=== PATIENT | female | born 1965 | race Caucasian/White ===

== ENCOUNTER 2017-06-03 15:01 | Emergency (ER) | payer OTHER ==
[2017-06-03 15:25] LABS: BASOPHILS % (AUTO) 0.3 %; EOSINOPHILS % (AUTO) 0.1 %; HGB - HEMOGLOBIN 13.6 g/dL (12.0-16.0); LYMPHOCYTES # (AUTO) 0.8 10^3/uL (1.5-3.5); LYMPHOCYTES % (AUTO) 4.9 %; MEAN CORPUSCULAR HEMOGLOBIN 28.5 pg (27.0-31.0); MEAN CORPUSCULAR HGB CONC 33.3 g/dL (32.0-36.0); MEAN CORPUSCULAR VOLUME 85.7 fL (81.0-99.0); MEAN PLATELET VOLUME 8.9 fL (7.9-10.8); MONOCYTES # (AUTO) 1.1 10^3/uL (0.0-1.0); MONOCYTES % (AUTO) 6.9 %; NEUTROPHILS # (AUTO) 14.5 10^3/uL (1.5-6.6); NEUTROPHILS % (AUTO) 87.8 %; PLT - PLATELET COUNT 294 10^3/uL (130-450); RED BLOOD COUNT 4.76 10^6/uL (4.20-5.40); RED CELL DISTRIBUTION WIDTH 13.5 % (12.0-15.0); WHITE BLOOD COUNT 16.5 x10^3/uL (4.8-10.8)
[2017-06-03 15:42] LABS: ALBUMIN 4.4 g/dL (3.2-5.5); ALBUMIN/GLOBULIN RATIO 1.3 (1.0-2.2); BILIRUBIN,TOTAL 1.4 mg/dL (0.2-1.0); CALCIUM 9.6 mg/dL (8.5-10.3); CREATININE 0.7 mg/dL (0.4-1.0); TOTAL PROTEIN 7.9 g/dL (6.7-8.2)
[2017-06-03 16:48] LABS: BILIRUBIN,URINE NEGATIVE (NEGATIVE); GLUCOSE, URINE (UA) NEGATIVE (NEGATIVE); KETONES,URINE (UA) NEGATIVE (NEGATIVE); LEUKOCYTE ESTERASE, URINE TRACE (NEGATIVE); NITRITE,URINE NEGATIVE (NEGATIVE); OCCULT BLOOD,URINE NEGATIVE (NEGATIVE); PH,URINE 5.5 PH (5.0-7.5); PROTEIN,URINE NEGATIVE (NEGATIVE); UROBILINOGEN,URINE 0.2 (NORMAL) E.U./dL (NORMAL)
[2017-06-03 16:49] LABS: CLARITY,URINE CLEAR (CLEAR)
[2017-06-03 16:59] LABS: AMORPHOUS SEDIMENT,UR Moderate /LPF; BACTERIA,URINE None Seen /HPF (None Seen); RBC,URINE None Seen /HPF (0-5); SQUAMOUS EPITHELIAL CELL,UR FEW Squamous (<= Few)
--- NOTE | 2017-06-03 17:25 | ED Physician Documentation ---
PD HPI NVD - Stated complaint Stated Complaint: ABD PX/VOMITING/HEADACHE - Chief complaint Chief Complaint: Abd Pain - History obtained from History obtained from: Patient - History of Present Illness Timing - onset: Last night Timing - duration: Hours Timing - details: Abrupt onset, Still present Associated symptoms: Abdominal pain Contributing factors: No: Sick contact, Bad food, Travel, Recent antibiotics Improved by: No: Eating, Vomiting Worsened by: Eating Similar symptoms before: Has not had sx before Recently seen: Not recently seen Review of Systems Constitutional: denies: Fever, Chills Nose: denies: Rhinorrhea / runny nose, Congestion Throat: denies: Sore throat Cardiac: denies: Chest pain / pressure, Palpitations Respiratory: denies: Cough GI: reports: Abdominal Pain, Nausea, Vomiting. denies: Diarrhea : denies: Dysuria, Frequency Skin: denies: Rash, Lesions PD PAST MEDICAL HISTORY - Past Medical History Past Medical History: Yes GI: None Psych: Depression - Past Surgical History Past Surgical History: No - Present Medications Home Medications: Ambulatory Orders Medication Instructions Recorded Confirmed Gerd Med 02/01/14 02/01/14 Ibuprofen [Motrin] 400 mg PO Q6H PRN #30 tablet 02/01/14 Methylphenidate HCl [Concerta] 02/01/14 02/01/14 Oxycodone HCl/Acetaminophen 1 - 2 each PO Q6H PRN #15 tablet 02/01/14 [Percocet 5-325 mg Tablet] Venlafaxine [Effexor] 02/01/14 02/01/14 HYDROcod/ACETAM 5/325 [[place] 5/325] 1 tab PO Q6H PRN #15 tablet 06/03/17 Lidocaine Viscous 2% [Xylocaine 5 ml PO Q4H PRN #1 bottle 06/03/17 Viscous 2%] Ondansetron Odt [Zofran] 4 mg TL Q6H PRN #15 tablet 06/03/17 - Allergies Allergies/Adverse Reactions: Allergies Allergy/AdvReac Type Severity Reaction Status Date / Time No Known Drug Allergies Allergy Verified 02/01/14 12:28 - Social History Does the pt smoke?: No Smoking Status: Never smoker Does the pt drink ETOH?: No Does the pt have substance abuse?: No - Immunizations Immunizations are current?: Yes PD ED PE NORMAL - Vitals Vital signs reviewed: Yes - General General: Alert and oriented X 3, Well developed/nourished, Other (appears in discomfort upper abd. ) - HEENT HEENT: PERRL (nonicteric), Ears normal, Pharynx benign - Neck Neck: Supple, no meningeal sign, No adenopathy - Cardiac Cardiac: RRR, No murmur - Respiratory Respiratory: Clear bilaterally - Abdomen Abdomen: Soft, Non distended, No organomegaly, Other (tender in upper abd without guarding nor rebound tenderness. ) - Female Female : Deferred - Rectal Rectal: Deferred - Back Back: No CVA TTP - Derm Derm: Normal color, Warm and dry - Extremities Extremities: No deformity, No tenderness to palpate, No edema Results - Vitals Vitals: Oxygen O2 Source Room air - Labs Labs: Microbiology 06/03/17 16:38 Urine Culture - Final Urine,Clean Catch 10-50,000 COLONIES/ML Polymicrobial growth including potential pathogens. This is suggestive of skin or other contamination. Laboratory Tests 06/03/17 06/03/17 06/03/17 15:20 15:20 16:38 WBC 16.5 H RBC 4.76 Hgb 13.6 Hct 40.8 MCV 85.7 MCH 28.5 MCHC 33.3 RDW 13.5 Plt Count 294 MPV 8.9 Neut # 14.5 H Lymph # 0.8 L [place] # 1.1 H Eos # 0.0 Baso # 0.0 Absolute Nucleated RBC 0.00 Nucleated RBC % 0.0 Sodium 135 Potassium 3.8 Chloride 103 Carbon Dioxide 25 Anion Gap 7.0 BUN 12 Creatinine 0.7 Estimated GFR (MDRD) 89 Glucose 135 H Calcium 9.6 Total Bilirubin 1.4 H AST 395 H ALT 219 H Alkaline Phosphatase 153 H Total Protein 7.9 Albumin 4.4 Globulin 3.5 Albumin/Globulin Ratio 1.3 Lipase 20 L Urine Color YELLOW Urine Clarity CLEAR Urine pH 5.5 Ur Specific Leslie 1.020 Urine Protein NEGATIVE Urine Glucose (UA) NEGATIVE Urine Ketones NEGATIVE Urine Occult Blood NEGATIVE Urine Nitrite NEGATIVE Urine Bilirubin NEGATIVE Urine Urobilinogen 0.2 (NORMAL) Ur Leukocyte Esterase TRACE H Urine RBC None Seen Urine WBC 0-3 Ur Squamous Epith Cells FEW Squamous Amorphous Sediment Moderate Urine Bacteria None Seen Ur Microscopic Review INDICATED Urine Culture Comments INDICATED - Rads (name of study) abd U/S Radiology: Prelim report reviewed (stones without signs of cholecystitis. CBD minimal dilated without stone seen in duct. ) PD MEDICAL DECISION MAKING - ED course Complexity details: reviewed results, re-evaluated patient (feeling improved regarding pain. LFTs elevated mildly and U/S showing stones and questionably mildly dilated CBD. Consider she might have had a small stone pass through the duct. To return if not improved as could still be effect on duct. ), considered differential, d/w patient Departure - Departure Disposition: 01 Home, Self Care Clinical Impression: Elevated liver enzymes Nausea & vomiting Qualifiers: Vomiting type: unspecified Vomiting Intractability: intractable Qualified Code( s): R11.2 - Nausea with vomiting, unspecified Abdominal pain Qualifiers: Abdominal location: upper abdomen, unspecified Qualified Code(s): R10.10 - Upper abdominal pain, unspecified Condition: Stable Record reviewed to determine appropriate education?: Yes Instructions: ED Abdominal Pain Unkn Cause, ED Abdominal Pain Gallstone Poss Follow-Up: Marija Pascal ARNP [Primary Care Provider] - Prescriptions: HYDROcod/ACETAM 5/325 [[place] 5/325] 1 tab PO Q6H PRN #15 tablet PRN Reason: Pain Lidocaine Viscous 2% [Xylocaine Viscous 2%] 5 ml PO Q4H PRN #1 bottle PRN Reason: Pain Ondansetron Odt [Zofran] 4 mg TL Q6H PRN #15 tablet PRN Reason: Nausea / Vomiting Comments: Drink lots of fluids. [place] food for a day or 2. He has elements of your symptoms of sound like possible stomach virus and irritated stomach. However there is some gallstones present on your ultrasound and some elevated liver enzymes so you may have had a spasming or inflammation of the gallbladder. The ultrasound does not show acute inflammation of it and so it may not actually be the cause per se. Follow-up with your primary care regarding further evaluation of this. Recheck if not better over the next day or so. Use Zofran if needed for nausea. Continue usual medications at home. Add hydrocodone if needed for pain. He can use lidocaine with an antacid if needed for stomach pains. Again recheck if not improved in the next day or 2. Discharge Date/Time: 06/03/17 20:01
[2017-06-03] MEDS ORDERED: SODIUM CHLORIDE 0.9% 1,000 ML IV ONE (17:37)
[2017-06-03] MEDS ORDERED: ONDANSETRON 4 MG/2 ML VIAL IVP STA (17:37)
[2017-06-03] MEDS ORDERED: KETOROLAC 60 MG/2 ML VIAL IVP STA (17:37)
[2017-06-03] MEDS ORDERED: LIDOCAINE VISCOUS 2% 15 ML UDC MM STA (17:38)
[2017-06-03] MEDS ORDERED: MAG HYDROX/AL HYDROX/SIMETH 30 ML UDC PO STA (17:38)
[2017-06-03] MEDS: HYDROmorphone 1 MG/ML SYRINGE IVP STA ×2 (17:52→17:53)
--- NOTE | 2017-06-03 18:57 | Ultrasound Report ---
EXAM: ABDOMEN ULTRASOUND LIMITED, RUQ EXAM DATE: 06/03/2017 06:35 PM. CLINICAL HISTORY: Upper abd pain and vomiting since last night. COMPARISON: 12/14/2011 ultrasound. TECHNIQUE: Real-time scanning was performed with static images obtained. FINDINGS: Liver: Heterogeneous, hyperechoic echotexture. No focal liver lesions. 17 cm. Main portal vein flow: Hepatopetal. Gallbladder: There are 2 small stones within the gallbladder. No gallbladder wall thickening or peric holecystic fluid collections. Biliary System: CBD measures 7 mm. No intrahepatic or extrahepatic ductal dilatation. Other: None. IMPRESSION: 1. Cholelithiasis without evidence of acute cholecystitis. 2. Borderline dilated common bile duct with no obvious choledocholithiasis. 3. Fatty liver. [facility] Referring Provider Line: [phone] SITE ID: [id number]
[2017-06-03 19:58] VITALS: BP 119/62
== END 2017-06-03 20:01 | disposition home or self-care (01) ==
LOC: ED 15:01
DX: R74.8 Abnormal levels of other serum enzymes (principal); R11.2 Nausea with vomiting, unspecified
CPT/HCPCS: 36415; 76705; 80053; 81001; 83690; 85025; 87086; 96361; 96374; 96375; 99283; 99284; A9270; J1170; 81003

== ENCOUNTER 2021-06-11 16:17 | Emergency (ER) | payer OTHER ==
--- NOTE | 2021-06-11 16:33 | ED Physician Documentation ---
History of Present Illness - Stated complaint Stated Complaint: TIRED,HIGH BP - Chief complaint Chief Complaint: Cardiac - Additonal information Additional information: 55-year-old female comes to the emergency department for evaluation of elevated blood pressure. [place] and was told that her blood pressure was too high and that she had an abnormal EKG and needed to come to the ER. Patient denies chest pain, shortness of air. No headache nausea vomiting. No leg swelling. She tells this provider that had her doctor not told her to come to the ER she would not be here Patient denies any history of hypertension or diabetes. No tobacco use. Rare social alcohol use Patient reports that her father in his mid 60s due to myocardial infarction. Patient entered menopause about 2 years ago. Patient has never been seen by a conference translator or had a stress test. She denies ever having chest pain, shortness of breath or exertional chest pain EKG from the provider's office shows a sinus rhythm with a rate of 84. There are some Q waves in the anterior leads but poor R wave progression. No findings to suggest STEMI Review of Systems Constitutional: denies: Fever, Chills Eyes: reports: Reviewed and negative Nose: reports: Reviewed and negative Throat: reports: Reviewed and negative Cardiac: reports: Reviewed and negative Respiratory: reports: Reviewed and negative GI: reports: Reviewed and negative : reports: Reviewed and negative Skin: reports: Reviewed and negative Musculoskeletal: reports: Reviewed and negative PD PAST MEDICAL HISTORY - Past Medical History GI: None Psych: Depression - Past Surgical History Past Surgical History: No - Present Medications Home Medications: Ambulatory Orders Medication Instructions Recorded Confirmed Gerd Med 02/01/14 02/01/14 Ibuprofen [Motrin] 400 mg PO Q6H PRN #30 tablet 02/01/14 Methylphenidate HCl [Concerta] 02/01/14 02/01/14 Oxycodone HCl/Acetaminophen 1 - 2 each PO Q6H PRN #15 tablet 02/01/14 [Percocet 5-325 mg Tablet] Venlafaxine [Effexor] 02/01/14 02/01/14 HYDROcod/ACETAM 5/325 [[place] 5/325] 1 tab PO Q6H PRN #15 tablet 06/03/17 Lidocaine Viscous 2% [Xylocaine 5 ml PO Q4H PRN #1 bottle 03/13/18 Viscous 2%] Ondansetron Odt [Zofran] 4 mg TL Q6H PRN #15 tablet 06/03/17 - Allergies Allergies/Adverse Reactions: Allergies Allergy/AdvReac Type Severity Reaction Status Date / Time No Known Drug Allergies Allergy Verified 02/01/14 12:28 - Social History Does the pt smoke?: No Smoking Status: Never smoker Does the pt drink ETOH?: No Does the pt have substance abuse?: No - Immunizations Immunizations are current?: Yes PD ED PE NORMAL - General General: Alert and oriented X 3, No acute distress, Well developed/nourished - HEENT HEENT: PERRL, Moist mucous membranes - Neck Neck: Supple, no meningeal sign, Thyroid normal - Cardiac Cardiac: RRR, No murmur, No gallop - Respiratory Respiratory: No respiratory distress, Clear bilaterally - Abdomen Abdomen: Normal bowel sounds, Soft, Non tender - Back Back: No CVA TTP, No spinal TTP - Derm Derm: Normal color, Warm and dry - Extremities Extremities: No deformity - Neuro Neuro: Alert and oriented X 3 Eye Opening: Spontaneous Motor: Obeys Commands Verbal: Oriented GCS Score: 15 - Psych Psych: Normal mood Results - Vitals Vitals: Vital Signs - 24 hr 06/11/21 06/11/21 06/11/21 16:30 16:39 17:28 Temperature 36.9 C Heart Rate 81 81 80 Respiratory 18 20 16 Rate Blood Pressure 170/100 H 156/96 H 144/92 H O2 Saturation 98 98 100 Oxygen O2 Source Room air - EKG (time done) 1633 Rate: Rate (enter#) (75) Rhythm: NSR [place]: Normal Intervals: Normal OK. No: Prolonged QT QRS: Normal Ischemia: Non specific changes Compare to prior EKG: Old EKG unavailable Computer interpretation: Agree with computer - Labs Labs: Laboratory Tests 06/11/21 06/11/21 06/11/21 16:44 16:44 16:44 WBC 9.7 RBC 4.47 Hgb 13.9 Hct 40.1 MCV 89.7 MCH 31.1 H MCHC 34.7 RDW 12.5 Plt Count 239 MPV 10.6 Neut # (Auto) 5.6 Lymph # (Auto) 2.9 [place] # (Auto) 0.7 Eos # (Auto) 0.1 Baso # (Auto) 0.1 Absolute Nucleated RBC 0.00 Nucleated RBC % 0.0 Sodium 134 L Potassium 3.7 Chloride 102 Carbon Dioxide 22 Anion Gap 10.0 BUN 15 Creatinine 0.7 Estimated GFR (MDRD) 88 L Glucose 146 H Calcium 9.4 Total Bilirubin 0.4 AST 41 ALT 65 H Alkaline Phosphatase 91 Troponin I High Sens 4.5 Total Protein 7.3 Albumin 4.2 Globulin 3.1 Albumin/Globulin Ratio 1.4 Lipase 30 TSH 06/11/21 16:44 WBC RBC Hgb Hct MCV MCH MCHC RDW Plt Count MPV Neut # (Auto) Lymph # (Auto) [place] # (Auto) Eos # (Auto) Baso # (Auto) Absolute Nucleated RBC Nucleated RBC % Sodium Potassium Chloride Carbon Dioxide Anion Gap BUN Creatinine Estimated GFR (MDRD) Glucose Calcium Total Bilirubin AST ALT Alkaline Phosphatase Troponin I High Sens Total Protein Albumin Globulin Albumin/Globulin Ratio Lipase TSH 1.75 PD MEDICAL DECISION MAKING - ED course Complexity details: reviewed results, re-evaluated patient, considered differential ED course: 55-year-old female was sent to the emergency department for evaluation of elevated blood pressure in her doctor's office. She has no previous history of hypertension. She was therefore a routine screening exam/physical. She denies any chest pain, shortness of air, headache or abdominal pain. No nausea or vomiting. Here in the emergency department she was initially modestly hypertensive but again without symptoms. After time her blood pressure was noted to be decreased to 144/92. Screening labs are unremarkable. She is got no significant anemia findings of renal disease. High-sensitivity troponin is negative. Chest x-ray is without acute focal findings. Her EKG is nonischemic though there is some T wave flattening anteriorly. Given her age I did recommend close follow-up with her primary care doctor. With the understanding of [place] guidelines will defer initiation of treatment for hypertension today here in the emergency department. Do make the recommendation that the patient should be scheduled for outpatient stress test or echocardiogram. Emergent return precautions otherwise discussed. Departure - Departure Disposition: 01 Home, Self Care Clinical Impression: Elevated blood pressure reading Condition: Stable Record reviewed to determine appropriate education?: Yes Instructions: Hypertension Control Follow-Up: ANDREIA BLACK MD [Primary Care Provider] - Comments: Darcy you were referred to the emergency department today for evaluation of elevated blood pressure readings in your doctor's office. While hypertension can be a concerning finding, it typically does not require emergent management. You do not have any signs of hypertensive emergency or urgency while here in the ED. Today your chest x-ray and screening labs are all essentially normal. The last blood pressure recorded for you here in the emergency department is 144/92. I do recommend that you pop by an outpatient blood pressure monitor and begin taking your blood pressures once in the morning and once in the evening. I recommend that you keep a journal of these pressures. I would like you to follow-up closely with your primary care doctor to determine if you would benefit from the initiation of blood pressure medications. You may also benefit from referral to a conference translator for a stress test or echocardiogram.
[2021-06-11 16:49] LABS: BASOPHILS # (AUTO) 0.1 10^3/uL (0.0-0.1); BASOPHILS % (AUTO) 0.8 %; EOSINOPHILS # (AUTO) 0.1 10^3/uL (0.0-0.7); EOSINOPHILS % (AUTO) 1.4 %; HCT - HEMATOCRIT 40.1 % (37.0-47.0); HGB - HEMOGLOBIN 13.9 g/dL (12.0-16.0); LYMPHOCYTES # (AUTO) 2.9 10^3/uL (1.5-3.5); LYMPHOCYTES % (AUTO) 29.7 %; MEAN CORPUSCULAR HEMOGLOBIN 31.1 pg (27.0-31.0); MEAN CORPUSCULAR HGB CONC 34.7 g/dL (32.0-36.0); MEAN CORPUSCULAR VOLUME 89.7 fL (81.0-99.0); MEAN PLATELET VOLUME 10.6 fL (7.9-10.8); MONOCYTES # (AUTO) 0.7 10^3/uL (0.0-1.0); MONOCYTES % (AUTO) 6.8 %; NEUTROPHILS # (AUTO) 5.6 10^3/uL (1.5-6.6); NEUTROPHILS % (AUTO) 57.6 %; PLT - PLATELET COUNT 239 10^3/uL (130-450); RED BLOOD COUNT 4.47 10^6/uL (4.20-5.40); RED CELL DISTRIBUTION WIDTH 12.5 % (12.0-15.0); WHITE BLOOD COUNT 9.7 x10^3/uL (4.8-10.8)
--- NOTE | 2021-06-11 17:01 | XRAY Report ---
PROCEDURE: Chest 1 View X-Ray INDICATIONS: HTN TECHNIQUE: One view of the chest was acquired. COMPARISON: None FINDINGS: Surgical changes and devices: None. Lungs and pleura: No pleural effusions or pneumothorax. Lungs are clear. Mediastinum: Mediastinal contours appear normal. Heart size is normal. Bones and chest wall: No suspicious bony lesions. Overlying soft tissues appear unremarkable. IMPRESSION: No acute process. Reviewed by: Cha Madsen MD on 06/11/2021 5:00 PM PDT Approved by: Cha Madsen MD on 06/11/2021 5:00 PM PDT Station ID: [id number]
[2021-06-11 17:04] LABS: ALBUMIN 4.2 g/dL (3.2-5.5); ALBUMIN/GLOBULIN RATIO 1.4 (1.0-2.2); BILIRUBIN,TOTAL 0.4 mg/dL (0.2-1.0); CALCIUM 9.4 mg/dL (8.5-10.3); CREATININE 0.7 mg/dL (0.4-1.0); POTASSIUM 3.7 mmol/L (3.5-5.0); TOTAL PROTEIN 7.3 g/dL (6.7-8.2)
[2021-06-11 17:28] VITALS: BP 144/92
== END 2021-06-11 17:39 | disposition home or self-care (01) ==
LOC: ED 16:17
DX: R03.0 Elevated blood-pressure reading, without diagnosis of hypertension (principal)
CPT/HCPCS: 36415; 80053; 83690; 84443; 84484; 85025; 93005; 99283; 99284

== ENCOUNTER 2022-02-20 09:22 | Outpatient (CLI) | payer OTHER ==
--- NOTE | 2022-02-21 09:47 | MRI Report ---
PROCEDURE: SHOULDER WO - RT INDICATIONS: SHOULDER PAIN TECHNIQUE: Noncontrast oblique coronal T2 fast spin echo with fat saturation, oblique sagittal T1 spin echo and T2 fast spin echo with fat saturation, axial T1 spin echo and T2 fast spin echo with fat saturation t hrough the shoulder. COMPARISON: None. FINDINGS: Image quality: There are motion artifacts. Rotator cuff: There is partial-thickness tear of the distal supraspinatus tendon involving the articu lar and bursal surfaces, as well as the footprint. There is mild supraspinous muscle atrophy. Mild in fraspinatus and subscapularis tendinosis without discrete tendon tear. Bones and bursae: No bone marrow contusions or fractures. Moderate acromioclavicular and glenohumera l joint degeneration. The acromion demonstrates conventional anatomy, without an os acromiale. There is subcoracoid bursal fluid consistent with bursitis. Capsule and soft tissues: There is degenerative labral fraying involving the anterior superior labru m. In the absence of intra-articular contrast, the glenohumeral ligaments appear intact. The long he ad of the biceps tendon demonstrates normal location and morphology. The rotator interval appears no rmal, without fibrosis. The coracohumeral ligament is normal in thickness. IMPRESSION: 1. Partial-thickness tear of the supraspinous tendon. There is mild supraspinous muscle atrophy. 2. Mild infraspinous and subscapularis tendinosis. 3. Subcoracoid bursitis. 4. Moderate acromioclavicular and glenohumeral joint degeneration. 5. Degenerative anterior superior labral fraying. Reviewed by: Aubree Hayes MD on 02/21/2022 9:46 AM PST Approved by: Aubree Hayes MD on 02/21/2022 9:46 AM PST Station ID: [id number]
== END 2022-02-20 09:23 | disposition home or self-care (01) ==
LOC: DI 09:22
PROVIDERS: ATTEND Physician Assistant
DX: M75.111 Incomplete rotator cuff tear or rupture of right shoulder, not specified as traumatic (principal); M62.511 Muscle wasting and atrophy, not elsewhere classified, right shoulder; M75.51 Bursitis of right shoulder; M19.011 Primary osteoarthritis, right shoulder; M75.81 Other shoulder lesions, right shoulder

== ENCOUNTER 2023-06-30 09:39 | Emergency (ER) | payer OTHER ==
--- NOTE | 2023-06-30 10:35 | XRAY Report ---
PROCEDURE: Chest 1V INDICATIONS: cough/congestion TECHNIQUE: One view of the chest was acquired. COMPARISON: Chest x-ray 06/11/2021 FINDINGS: Surgical changes and devices: None. Lungs and pleura: No pleural effusions or pneumothorax. Lungs are clear. Mediastinum: Mediastinal contours appear normal. Heart size is normal. Bones and chest wall: No suspicious bony lesions. Overlying soft tissues appear unremarkable. IMPRESSION: No acute cardiopulmonary process. Reviewed by: Perri Traylor MD on 06/30/2023 10:34 AM PDT Approved by: Perri Traylor MD on 06/30/2023 10:34 AM PDT Station ID: [id number]
[2023-06-30 11:04] LABS: B. PARAPERTUSSIS- RESP PCR PAN NOT DETECTED; B. PERTUSSIS- RESP PCR PANEL NOT DETECTED; C. PNEUMONIAE- RESP PCR PANEL NOT DETECTED; CORONAVIRUS 229E-RESP PCR NOT DETECTED; CORONAVIRUS HKU1-RESP PCR NOT DETECTED; CORONAVIRUS NL63-RESP PCR NOT DETECTED; CORONAVIRUS OC43-RESP PCR NOT DETECTED; HUMAN METAPNEUMOVIRUS DETECTED; INFLUENZA A- RESP PCR PANEL NOT DETECTED; INFLUENZA B - RESP PCR PANEL NOT DETECTED; M. PNEUMONIAE- RESP PCR PANEL NOT DETECTED; PARAINFLUENZA VIRUS 1 NOT DETECTED; PARAINFLUENZA VIRUS 2 NOT DETECTED; PARAINFLUENZA VIRUS 3 NOT DETECTED; PARAINFLUENZA VIRUS 4 NOT DETECTED; RHINOVIRUS/ENTEROVIRUS NOT DETECTED; RSV- RESP PCR PANEL NOT DETECTED; SARS-CoV-2 -RESP PCR PANEL NOT DETECTED
[2023-06-30] MEDS: IPRATROPIUM/ALBUTEROL 3 ML NEB INH STA (11:34)
--- NOTE | 2023-06-30 12:09 | ED Physician Documentation ---
PD HPI URI - Stated complaint Stated Complaint: WEAK,COUGH,RUNNY NOSE - Chief complaint Chief Complaint: Resp - History obtained from History obtained from: Patient - Additional information Additional information: Patient is a 57-year-old female presenting for evaluation of cough and congestion for the past 2 days. Reports also having body aches. Reports having COVID 3 weeks ago but did recover from that until she started feeling ill again 2 days ago.Cough is not productive. No reported fevers. No vomiting or diarrhea. who is with her and also had COVID a few weeks ago was not currently ill with similar symptoms. 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 - Present Medications Home Medications: Ambulatory Orders Medication Instructions Recorded Confirmed Gerd Med 02/01/14 02/01/14 Ibuprofen [Motrin] 400 mg PO Q6H PRN #30 tablet 02/01/14 Methylphenidate HCl [Concerta] 02/01/14 02/01/14 Oxycodone HCl/Acetaminophen 1 - 2 each PO Q6H PRN #15 tablet 02/01/14 [Percocet 5-325 mg Tablet] Venlafaxine [Effexor] 02/01/14 02/01/14 HYDROcod/ACETAM 5/325 [[place] 5/325] 1 tab PO Q6H PRN #15 tablet 06/03/17 Lidocaine Viscous 2% [Xylocaine 5 ml PO Q4H PRN #1 bottle 06/03/17 Viscous 2%] Ondansetron Odt [Zofran] 4 mg TL Q6H PRN #15 tablet 06/03/17 Albuterol Sulf [Ventolin Hfa 1 - 2 puffs INH Q4HR PRN #1 each 06/30/23 Inhaler] Benzonatate [Tessalon] 100 mg PO TID PRN #21 cap 06/30/23 predniSONE [Deltasone] 60 mg PO DAILY 5 Days #15 tablet 06/30/23 - Allergies Allergies/Adverse Reactions: Allergies Allergy/AdvReac Type Severity Reaction Status Date / Time No Known Drug Allergies Allergy Verified 06/30/23 09:55 - Social History Does the pt smoke?: No Smoking Status: Never smoker Does the pt drink ETOH?: No Does the pt have substance abuse?: No - Immunizations Immunizations are current?: Yes PD ED PE NORMAL - General General: Alert and oriented X 3, No acute distress, Well developed/nourished - HEENT HEENT: Atraumatic, Moist mucous membranes, Pharynx benign - Neck Neck: Supple, no meningeal sign - Cardiac Cardiac: RRR, Strong equal pulses - Respiratory Respiratory: No respiratory distress, Other (End expiratory wheezing, frequent coughing with deep inspiration) - Abdomen Abdomen: Soft, Non tender - Derm Derm: Warm and dry - Extremities Extremities: No calf tenderness / cord - Neuro Neuro: Normal speech Results - Vitals Vitals: Vital Signs - 24 hr 06/30/23 06/30/23 06/30/23 09:52 09:55 11:39 Temperature 36.8 C Heart Rate 80 83 78 Respiratory 20 18 20 Rate Blood Pressure 129/90 H 137/89 H O2 Saturation 96 96 06/30/23 12:20 Temperature Heart Rate 77 Respiratory 17 Rate Blood Pressure 125/79 O2 Saturation 93 Oxygen O2 Source Room air - Labs Labs: Laboratory Tests 06/30/23 10:00 Nasal Adenovirus (PCR) NOT DETECTED Nasal B. parapertussis DNA (PCR) NOT DETECTED Nasal Coronavir 229E PCR NOT DETECTED Nasal Coronavir HKU1 PCR NOT DETECTED Nasal Coronavir NL63 PCR NOT DETECTED Nasal Coronavir OC43 PCR NOT DETECTED Nasal Enterovir/Rhinovir PCR NOT DETECTED Nasal Influenza B PCR NOT DETECTED Nasal Influenza A PCR NOT DETECTED Nasal Parainfluen 1 PCR NOT DETECTED Nasal Parainfluen 2 PCR NOT DETECTED Nasal Parainfluen 3 PCR NOT DETECTED Nasal Parainfluen 4 PCR NOT DETECTED Nasal RSV (PCR) NOT DETECTED Nasal B.pertussis DNA PCR NOT DETECTED Nasal C.pneumoniae (PCR) NOT DETECTED [place] Human Metapneumo PCR DETECTED A Nasal M.pneumoniae (PCR) NOT DETECTED Nasal SARS-CoV-2 (PCR) NOT DETECTED PD Medical Decision Making - ED course Complexity details: reviewed results, re-evaluated patient, d/w patient ED course: Patient with URI symptoms for 2 days. Vital signs are stable. Lungs with mild wheezing. A chest x-ray which I reviewed is negative for pneumonia. Patient was given a neb treatment with improvement in her symptoms. Respiratory swab is positive for human metapneumovirus which I reviewed with the patient. Appears to be having an episode of bronchitis related to virus. Do not see any indicat ion for antibiotics at this time. Will have patient continue with supportive care as well as treatment of bronchitis with course of steroids and albuterol inhaler. Patient was counseled on treatment plan as well as concerning symptoms to return for. Departure - Departure Disposition: 01 Home, Self Care Clinical Impression: Bronchitis Condition: Stable Instructions: ED Bronchitis Asthmatic Prescriptions: Albuterol Sulf [Ventolin Hfa Inhaler] 1 - 2 puffs INH Q4HR PRN #1 each PRN Reason: Shortness Of Air/Wheezing predniSONE [Deltasone] 60 mg PO DAILY 5 Days #15 tablet Benzonatate [Tessalon] 100 mg PO TID PRN #21 cap PRN Reason: Cough Comments: You have tested positive for human metapneumovirus which is a respiratory virus causing symptoms similar to the common cold. You also have symptoms of bronchitis which is inflammation in the airway. At this time antibiotics are not indicated as you do not have signs of pneumonia on your chest x-ray. I have sent a prescription for a course of steroids as well as an albuterol inhaler and medication to help you with your cough to the [facility] pharmacy in [place]. Please continue with staying hydrated and drinking plenty of fluids and getting rest. Return to the ER with any worsening symptoms. Forms: PCP List Discharge Date/Time: 06/30/23 12:26
[2023-06-30 12:21] VITALS: BP 125/79; O2SAT 93
== END 2023-06-30 12:26 | disposition home or self-care (01) ==
LOC: ED 09:39
DX: J40 Bronchitis, not specified as acute or chronic (principal); B97.81 Human metapneumovirus as the cause of diseases classified elsewhere; Z98.82 Breast implant status
CPT/HCPCS: 87633; 94640; 94664; 99283; 99284